=== PATIENT | male | born 1945 | race Caucasian/White ===

== ENCOUNTER 2016-12-14 04:47 | Emergency (ER) | payer SELFPAY ==
[~2016-12-14] VITALS: Ht 185.4 cm; Wt 78.4 kg
[2016-12-14 04:48] VITALS: BP 139/84
[2016-12-14] MEDS ORDERED: DIPH,PERTUSS(ACELL),TET VAC/PF 0.5 ML IM-VACC ONE ×2 (05:16→05:30)
[2016-12-14] MEDS ORDERED: LIDOCAINE 1%, 20ML ONE (05:16)
[2016-12-14] MEDS ORDERED: LIDOCAINE 1%, 20ML SQ ONE (05:30)
== END 2016-12-14 07:39 | disposition home or self-care (01) ==
LOC: ED 07:16
DX: S61.012A Laceration without foreign body of left thumb without damage to nail, initial encounter (principal); Z23 Encounter for immunization; W45.8XXA Other foreign body or object entering through skin, initial encounter; Y93.89 Activity, other specified; Y99.8 Other external cause status; Y92.828 Other wilderness area as the place of occurrence of the external cause
CPT/HCPCS: 12041; 90471; 90715; 99284; J3490; 12001

== ENCOUNTER 2016-12-16 18:59 | Emergency (ER) | payer SELFPAY ==
[~2016-12-16] VITALS: Ht 185.4 cm; Wt 79.0 kg
[2016-12-16 19:01] VITALS: BP 151/81
== END 2016-12-16 19:45 | disposition home or self-care (01) ==
LOC: ED 19:39
DX: S61.412D Laceration without foreign body of left hand, subsequent encounter (principal); X58.XXXD Exposure to other specified factors, subsequent encounter; Y92.89 Other specified places as the place of occurrence of the external cause; Y99.8 Other external cause status
CPT/HCPCS: 99281